=== PATIENT | male | born 1985 | race Caucasian/White ===

== ENCOUNTER 2017-10-19 21:45 | Emergency (ER) | payer OTHER ==
[~2017-10-19] VITALS: Ht 182.9 cm; Wt 84.8 kg
[~2017-10-19 21:45] MED LIST: AMBIEN10 MG PO; ATIVAN1 MG PO; BACLOFEN10 MG PO; CLONAZEPAM1 MG PO; CYCLOBENZAPRINE10 MG PO; FLEXERIL10 MG PO; FLEXERIL5 MG; LUNESTA3 MG PO; MORPHINE SULFAT15 MG PO; NORCO 10-325 T1 EACH; NORCO 10-325 T1 EACH PO; PERCOCET 5-3251 EACH PO; SERTRALINE HCL50 MG PO; SUMATRIPTAN SU100 MG PO; VENTOLIN HFA18 GM INH; XANAX1 MG PO; ZOFRAN4 MG PO
--- NOTE | 2017-10-20 18:23 | EKG ---
[facility] [address] [facility] [place], [place] [address] Signed Sinus tachycardia Possible Left atrial enlargement Septal infarct , age undetermined Abnormal ECG No previous ECGs available Confirmed by LILI LINARES MD ([id number]) on 10/20/2017 6:22:43 PM Electronically Signed By: LILI LINARES MD 10/20/17 1823 PATIENT NAME: LUCAS ALEJANDRE Electrocardiogram DATE OF : 85 PHYSICIAN: LILI LINARES MD REPORT #: [id number] REPORT IS CONFIDENTIAL AND NOT TO BE RELEASED WITHOUT AUTHORIZATION
== END 2017-10-20 00:28 | disposition home or self-care (01) ==
LOC: ED 21:45
DX: R07.9 Chest pain, unspecified (principal); F17.200 Nicotine dependence, unspecified, uncomplicated; Z88.5 Allergy status to narcotic agent; Z79.899 Other long term (current) drug therapy
CPT/HCPCS: 71045; 71260; 80053; 84484; 85025; 93005; 93010; 96374; 96375; 99284; J1885; J2270; J2405; Q9967

== ENCOUNTER 2018-12-23 14:10 | Emergency (ER) | payer OTHER ==
[~2018-12-23] VITALS: Ht 182.9 cm; Wt 90.7 kg
[~2018-12-23 14:10] MED LIST changes: +DIAZEPAM2 MG PO; +LISINOPRIL10 MG PO; +REGLAN10 MG PO
--- OUTSIDE RECORDS SUMMARY | 2018-12-23 14:14 | XMS ---
PreManage Notification: LUCAS ALEJANDRE Security Land Manager Events No recent Security Events currently on file CRITERIA MET - [facility] CARE PROVIDERS EMIGDIO ZHANG Nurse Practitioner: Family Current PHONE: [phone] LORE SANTANA [facility] Current PHONE: Unknown LORE SANTANA [facility] Current PHONE: Unknown Andrew Ventura MD PHONE: Unknown CONSTANTIN ROCHA Other Current PHONE: Unknown ROBIN WATERS Primary Care Current PHONE: [phone] [place] has no Care Guidelines for this patient. Carlito VISIT COUNT (12 MO.) 3 MARISSA Beebe TOTAL 3 NOTE: Visits indicate total known visits. ED/C VISIT TRACKING (12 MO.) 12/23/2018 14:11 [facility] [place] TYPE: Emergency COMPLAINT: - HEAD ACHE, INJ 11/09/2018 21:02 [facility] [place] TYPE: Emergency COMPLAINT: - ANKLE INJURY DIAGNOSES: - Sprain of unspecified ligament of right ankle, initial encounter - Overexertion from prolonged static or awkward postures, initial encounter - Essential (primary) hypertension - Other care home (current) drug therapy - Unspecified injury of right ankle, initial encounter - Personal history of nicotine dependence 04/12/2018 16:42 [facility] [place] TYPE: Emergency COMPLAINT: - NAUSEA,VOMITING DIAGNOSES: - Migraine, unspecified, not intractable, without status migrainosus - Nicotine dependence, unspecified, uncomplicated - Other terminal gauger supervisor (current) drug therapy - Headache INPATIENT VISIT TRACKING (12 MO.) No inpatient visits to display in this time frame [email or web address]
== END 2018-12-23 16:20 | disposition home or self-care (01) ==
LOC: ED 14:10
DX: S01.511A Laceration without foreign body of lip, initial encounter (principal); F11.20 Opioid dependence, uncomplicated; I10 Essential (primary) hypertension; Z79.899 Other long term (current) drug therapy; Y04.0XXA Assault by unarmed brawl or fight, initial encounter
CPT/HCPCS: 70250; 72040; 99284